=== PATIENT | female | born 1980 | race Caucasian/White ===

== ENCOUNTER 2023-06-28 10:05 | Outpatient (REF) | payer MEDICAID, SELFPAY ==
[2023-06-28 15:30] LABS: Alanine Aminotransferase 18 U/L (0-31); Albumin Level 3.6 g/dL (3.5-5.0); Alkaline Phosphatase 128 U/L (39-117); Aspartate Amino Transferase 18 U/L (5-31); Bilirubin Direct 0.2 mg/dL (0.0-0.5); Bilirubin Total 0.3 mg/dL (0.0-1.0); Total Protein 6.5 g/dL (6.5-8.0)
== END 2023-06-28 10:06 | disposition home or self-care (01) ==
LOC: HO.CHCLDS 10:05
PROVIDERS: Visit Provider Family Medicine
DX: F11.20 Opioid dependence, uncomplicated (principal)
CPT/HCPCS: 36415; 80076

== ENCOUNTER 2024-12-11 09:33 | Outpatient (REF) | payer MEDICAID, SELFPAY ==
--- OUTSIDE RECORDS SUMMARY | 2024-12-11 09:15 | XMS_ITS | Encounter Summary ---
Author Organization [employer] Address [address] [facility] 7t [place] [address] Care Team Providers Care Night Cleaner Name Role Phone Katharine Walker MD Primary Care Provider [phone] Reason for Visit * Reason Comments OBAT F/U Encounter Details Date Type Department Care Team (Latest Contact Info) Description 12/11/2024 9:15 AM EDT Office Visit [facility] CHC MED & PEDS [address] [place], [place] [phone] Charli Carbone MD [address] [place] [address] Opioid dependence, uncomplicated (CMS/HCC) (Primary Dx) Social History Tobacco Use Types Packs/Day Years Used Date Smoking Tobacco: Never Assessed Depression Answer Date Recorded Patient Health Questionnaire-9 Score 2 01/07/2024 Patient Health Questionnaire-9 Score 2 01/07/2024 Last PHQ-9: Questionnaire Data Not on file 1 Depression Answer Date Recorded Patient Health Questionnaire-2 Score 0 01/07/2024 Comments Unknown Sex and Gender Information Value Date Recorded Sex Assigned at Female 02/02/2022 10:20 AM EDT Legal Sex Female 10:20 AM EDT Gender Identity Female 02/02/2022 10:20 AM EDT Sexual Orientation Straight 02/02/2022 10 :20 AM EDT documented as of this encounter Progress Notes * Charli Carbone MD - 12/11/2024 9:15 AM EDT Patient presents for Opioid Dependence RV. Patient on Suboxone dose of 16/4 mg on an 8-week schedule. Patient reports taking medication as prescribed with no adverse effects. Induction: 12/2007. In MAT program 17 years 0 month. LFTs completed 06/28/2023 (due for repeat) Patient actively enrolled in behavioral health services, with integrated N clinician. PCP - Dr. Walker 01/07/24 [employer]OOTER'S HELPER Reviewed by MAT Provider LAST OBAT VISIT 09/18/2024 UTOX: POS BUP ONLY NEG FOR ALL OTHER SUBSTANCES Patient presents for OUD OBAT visit Discussed goal setting and envisioning her ongoing recovery in the future Has Narcan Suboxone dosing schedule of 16mg/4mg daily and management of side effects reviewed Recovery support, harm reduction (including Narcan), and behavioral health attendance reviewed Undergone emergency on 08/16/2023 due to failed induction ( decels) at 37 weeks GA Doing well now; back to her routine Patient expressed understanding and agreement with continuing plan of care Met with a RC today Follow up in 8 weeks TODAY OBAT VISIT 12/11/2024 UTOX NOT CHECKED TODAY (NO CONCERNS) Patient presents for OUD OBAT visit Discussed goal setting and envisioning her ongoing recovery in the future Has Narcan Suboxone dosing schedule of 16mg/4mg daily and management of side effects reviewed Recovery support, harm reduction (including Narcan), and behavioral health attendance reviewed Undergone emergency on 08/16/2023 due to failed induction ( decels) at 37 weeks GA Doing well now; back to her routine Patient expressed understanding and agreement with continuing plan of care Follow up in 8 weeks (will consider increasing to q12 weeks if stable at next visit) Review of Systems Psychiatric/Behavioral: Negative for behavioral problems and dysphoric mood. The patient is not nervous/anxious. Physical Exam Constitutional: Appearance: Normal appearance. Pulmonary: Effort: Pulmonary effort is normal. Neurological: Mental Status: She is alert. Psychiatric: Mood and Affect: Mood normal. Behavior: Behavior normal. Yandy was seen today for obat f/u. Diagnoses and all orders for this visit: Opioid dependence, uncomplicated (CMS/HCC) (Primary) - Hepatic Function Panel; Future Patient presents for a routine OUD OBAT visit Discussed treatment options for opioid dependence Patient is tolerating current treatment of Buprenorphine/Naloxone SL Discussed behavioral modification and accessing services Counseling provided with a focus on support system, tools for achieving/maintaining recovery Reviewed barriers for these goals Discussed strategies to address when faced situations that may trigger use Continue with current visit schedule Narcan use discussed [place] reviewed Encouraged to check LFT Reviewed risk assessment for family planning, STI and PrEP Follow up in 8 weeks (will consider increasing to q12 weeks if stable at next visit) This information has been disclosed to you from records protected by federal confidentiality rules (42 CFR Part 2). The federal rules prohibit you from making any further disclosure of information inthis record that identifies a patient as having or having had a substance use disorder either directly, by reference to publicly available information, or through verification of such identification by another person unless further disclosure is expressly permitted by the written consent of the individual whose information is being disclosed or as otherwise permitted by (see2.3.1). The federal rules restrict any use of the information to investigate or prosecute with regard to a crime any patient with a substance use disorder, except as provided at 2.12??(5) and 2.65. documented in this encounter Plan of Treatment Upcoming Encounters Date Type Department Care Team (Late st Contact Info) Description 02/05/2025 9:45 AM EST Office Visit [facility] MED & PEDS [address] [place] [address] Charli Carbone MD [address] [place] [phone] Scheduled Orders Name Type Priority Associated Diagnoses Orde r Schedule Hepatic Function Panel Lab Routine Opioid dependence, uncomplicated (CMS/HCC) Expected: 12/11/2024 (Approximate), Expires: 12/11/2025 documented as of this encounter Visit Diagnoses Diagnosis Opioid dependence, uncomplicated (CMS/HCC)- Primary documented in this encounter Additional Health Concerns Assessment Noted Time PHQ-9 Depression Total Score: 2 01/07/20 24 11:27 AM EDT documented as of this encounter Care Teams Night Cleaner Relationship Specialty Start Date End Date Katharine Walker MD [address] [place] [address] PCP - General Family Medicine 03/08/12 documented as of this encounter
--- OUTSIDE RECORDS SUMMARY | 2024-12-11 10:49 | XMS_ITS | Encounter Summary ---
Author Organization [employer] Address [address] [facility] [address] [place] [address] Care Team Providers Care Boat Carpenter Name Role Phone Katharine Walker MD Primary Care Provider [phone] Encounter Details Date Type Department Care Team (Latest Contact Info) Description 12/11/2024 Travel Social History Tobacco Use Types Packs/Day Years [...] AM EDT documented as of this encounter Plan of Treatment Upcoming Encounters Date Type Department Care Team (Late st Contact Info) Description 02/05/2025 9:45 AM EST Office Visit [facility] CHC MED & PEDS [address] [place] [address] Charli Carbone MD [address] [place] [address] documented as of this encounter Visit Diagnoses Not on filedocumented in this encounter Additional Health Concerns Assessment Noted Time PHQ-9 Depression Total Score: 2 01/07/20 24 11:27 AM EDT documented as of this encounter Care Teams Boat Carpenter Relationship Specialty Start Date End Date Katharine Walker MD [address] [place] [id number] PCP - General Family Medicine 03/08/12 documented as of this encounter
--- OUTSIDE RECORDS SUMMARY | 2024-12-11 10:49 | XMS_ITS | Encounter Summary ---
Author Organization [employer] Address [address] [place] [address] 7[address] [place] [address] Care Team Providers Care Evaluation Analyst Name Role Phone Katharine Walker MD Primary Care Provider [phone] Reason for Visit * Reason Onset Date Comments Med Refill 11/28/2024 Encounter Details Date Type Department Care Team (Late Contact Info) Description 11/28/2024 Refill [facility] MEDICINE [address] [place], [place] [phone] Yolanda Torres, STEFANIE Uncomplicated opioid dependence (CMS/[facility]) Social History Tobacco Use Types Packs/Day Years [...] Encounters Date Type Department Care Team (Late Contact Info) Description 02/05/2025 9:45 AM EST Office [facility] MED & PEDS [address] [place] [address] Charli Carbone MD [address] [place], [place] [phone] documented as of this encounter Visit Diagnoses Diagnosis Uncomplicated opioid dependence (CMS/HCC) documented in this encounter Additional Health Concerns Assessment Noted Time PHQ-9 Depression Total Score: 2 01/07/20 24 11:27 AM EDT documented as of this encounter Care Teams Evaluation Analyst Relationship Specialty Start Date End Date Katharine Walker MD [address] [place] [address] PCP - General Family Medicine 03/08/12 documented as of this encounter
--- OUTSIDE RECORDS SUMMARY | 2024-12-11 10:49 | XMS_ITS | Encounter Summary ---
Author Organization [employer] Address [address] [place] [address] 7 [place] [address] Care Team Providers Care Electronics Manufacturer Name Role Phone Katharine Walker MD Primary Care Provider [phone] Reason for Visit * Reason Onset Date Comments Med Refill 09/29/2024 Encounter Details Date Type Department Care Team (Late st Contact Info) Description 09/29/2024 Refill [facility] MED & PEDS [address] [place] [address] Katharine Walker MD [address] [place] [address] Social History Tobacco Use Types Packs/Day Years [...] Description 02/05/2025 9:45 AM EST Office Visit [facility] CHC MED & PEDS [address] [place], [place] [phone] Charli Carbone MD [address] [place] [address] documented as of this encounter Visit Diagnoses Not on filedocumented in this encounter Additional Health Concerns Assessment Noted Time PHQ-9 Depression Total Score: 2 01/07/20 24 11:27 AM EDT documented as of this encounter Care Teams Electronics Manufacturer Relationship Specialty Start Date End Date Katharine Walker MD [address] [place] [address] [place] [address] PCP - General Family Medicine 03/08/12 documented as of this encounter
--- OUTSIDE RECORDS SUMMARY | 2024-12-11 10:49 | XMS_ITS | Encounter Summary ---
Author Organization [employer] Address [address] [place] [address] 7 [place] [address] Care Team Providers Care Director Of Strategic Sales Name Role Phone Katharine Walker MD Primary Care Provider [phone] Reason for Visit * Reason Comments Med Refill Encounter Details Date Type Department Care Team (Late st Contact Info) Description 09/10/2023 Refill [facility] MED & PEDS [address] [place] [address] Katharine Walker MD [address] [place] [address] Depression, unspecified depression type Social History Tobacco Use Types Packs/Day Years Used Date Smoking Tobacco: Never Assessed Comments Unknown Sex and Gender Information Value [...] Description 02/05/2025 9:45 AM EST Office Visit [facility] CHC MED & PEDS [address] [place], [place] [phone] Charli Carbone MD [address] [place] [address] documented as of this encounter Visit Diagnoses Diagnosis Depression, unspecified depression type documented in this encounter Care Teams Director Of Strategic Sales Relationship Specialty Start Date End Date Katharine Walker MD [address] [place] [address] PCP - General Family Medicine 03/08/12 documented as of this encounter
--- OUTSIDE RECORDS SUMMARY | 2024-12-11 10:49 | XMS_ITS | Encounter Summary ---
Author Organization [employer] Address [address] [place] [address] 7 [place] [address] Care Team Providers Care Bobj Developer Name Role Phone Katharine Walker MD Primary Care Provider [phone] Encounter Details Date Type Department Care Team (Late st Contact Info) Description 07/13/2024 Orders Only [facility] MED & PEDS [address] [place], [place] [phone] ProviderGretchen MD Social History Tobacco Use Types Packs/Day Years [...] Description 02/05/2025 9:45 AM EST Office Visit [facility] MED & PEDS [address] [place], [place] [phone] Charli Carbone MD [address] [place] [address] documented as of this encounter Procedures Procedure Name Priority Date/Time Associated Diagnosis Comments HM PAP/HPV Routine 08/20/2021 11:20 AM EDT documented in this encounter Results * HM PAP/HPV (08/20/2021 11:20 AM EDT) us Historical Provider HEALTH MAINTENANCE Final Result documented in this encounter Visit Diagnoses Not on filedocumented in this encounter Additional Health Concerns Assessment Noted Time PHQ-9 Depression Total Score: 2 01/07/20 24 11:27 AM EDT documented as of this encounter Care Teams Bobj Developer Relationship Specialty Start Date End Date Katharine Walker MD [address] [place] [address] PCP - General Family Medicine 03/08/12 documented as of this encounter
--- OUTSIDE RECORDS SUMMARY | 2024-12-11 10:49 | XMS_ITS | Encounter Summary ---
Author Organization [employer] Address [address] [facility] 7t [place] [address] Care Team Providers Care Wedding Cake Designer Name Role Phone Katharine Walker MD Primary Care Provider [phone] Reason for Visit * Reason Onset Date Comments Med Refill 09/29/2024 Encounter Details Date Type Department Care Team ([facility] Contact Info) Description 09/29/2024 Telephone [facility] MEDICINE [address] [place] [address] Katharine Walker MD [address] [place] [address] Med Refill Social History Tobacco Use Types Packs/Day Years [...] AM EDT documented as of this encounter Miscellaneous Notes * Telephone Encounter - Zee Cardenas LPN - 09/29/2024 11:17 AM EDT Medication was sent to [facility] #[id number] on 09/26/24 #30 with 2 refills. * Telephone Encounter - Brenda Correa - 09/29/2024 11:12 AM EDT TC from pt requesting medication refill. Medications needing refill : sertraline (Zoloft) 50 MG tablet To be sent to: [facility]/pharmacy #[id number] documented in this encounter Plan of Treatment Upcoming Encounters Date Type Department Care Team (Late st Contact Info) Description 02/05/2025 9:45 AM EST Office Visit [facility] CHC MED & PEDS [address] [place] [address] Charli Carbone MD [address] [place] [address] documented as of this encounter Visit Diagnoses Not on filedocumented in this encounter Additional Health Concerns Assessment Noted Time PHQ-9 Depression Total Score: 2 01/07/20 24 11:27 AM EDT documented as of this encounter Care Teams Wedding Cake Designer Relationship Specialty Start Date End Date Katharine Walker MD [address] [place] [address] PCP - General Family Medicine 03/08/12 documented as of this encounter
--- OUTSIDE RECORDS SUMMARY | 2024-12-11 10:49 | XMS_ITS | Clinical Summary ---
Author Organization [employer] Address [address] [facility] 7t [place] [address] Care Team Providers Care Aviation Manager Name Role Phone Katharine Walker MD Primary Care Provider [phone] Allergies No known active allergies Medications naloxone (Narcan) 4 mg/0.1 mL nasal spray Administer 0.1 mL into affected nostril(s). 01/04/20 20 Active omeprazole OTC (PriLOSEC OTC) 20 MG EC tablet Take 1 tablet by mouth 1 (one) time each day. 06/07/19 22 Active polyethylene glycol, PEG, 3350 (MiraLax) 17 GM/SCOOP powder take (17G) by oral route every day mixed with 8 oz. water, juice, soda, coffee or tea 06/21/19 22 Active sennosides (Senokot) 8.6 MG tablet Take 1 tablet on day 1, take a second tablet in 24 hours if no response. Can take 2 tabs daily for slow-transit constipation 05/02/19 22 Active Blood Pressure kit Active hydrOXYzine pamoate (Vistaril) 25 MG capsule Take 1 capsule (25 mg) by mouth every 12 (twelve) hours if needed for anxiety for up to 10 days. 20 capsule 06/21/19 25 Active sertraline (Zoloft) 50 MG tablet Take 1 tablet (50 mg) by mouth Once per day. 30 tablet 2 09/27/19 25 Active Buprenorphine HCl-Naloxone HCl (Suboxone) 8-2 MG SL filmIndicatio ns:Uncomplica yvonne opioid dependence (CMS/HCC) Place 1 Film under the tongue every 12 (twelve) hours. Do not start before December 11, 2024. 56 Film 1 12/12/19 25 025 Active Buprenorphine HCl-Naloxone HCl (Suboxone) 8-2 MG SL filmIndicatio ns:Uncomplica yvonne opioid dependence (CMS/HCC) Place 1 Film under the tongue every 12 (twelve) hours for 28 days. Do not start before November 13, 2024. 56 Film 11/14/19 25 025 Discontinued(R eorder (will not trigger notification to Pharmacy)) Active Problems Problem Noted Date Diagnosed Date Anxiety 07/04/2024 Opioid type dependence, continuous 06/06/2013 Seasonal allergic rhinitis 06/06/2013 Tobacco dependence syndrome 06/06/2013 Encounters Date Type Department Care Team Description 12/11/2024 9:15 AM EDT Office Visit [facility] MED & PEDS [address] [place] [address] Charli Carbone MD Opioid dependence, uncomplicated (CMS/HCC) (Primary Dx) 12/11/2024 Travel 12/10/2024 Travel 11/28/2024 Refill [facility] [address] [place] [address] Yolanda Torres RN Uncomplicated opioid dependence (CMS/HCC) 10/25/2024 Refill [facility] [address] [place] [address] Yolanda Torres, RN Uncomplicated opioid dependence (CMS/HCC) 09/29/2024 Telephone [facility] MED & PEDS [address] [place] [address] Katharine Walker MD Prior Authorization 09/29/2024 Refill [facility] MED & PEDS [address] [place] [address] Katharine Walker MD 09/29/2024 Telephone [facility] [address] [place] [address] Katharine Walker MD Med Refill 09/26/2024 11:15 AM EDT Telemedicine [facility] MED & PEDS [address] [place] [address] Katharine Walker MD Anxiety (Primary Dx); Encounter for screening mammogram for breast cancer 09/26/2024 Travel 09/25/2024 Travel 09/18/2024 9:30 AM EDT Office Visit [facility] MED & PEDS [address] [place] [address] Charli Carbone MD Opioid dependence, uncomplicated (CMS/HCC) (Primary Dx) 09/18/2024 Travel 09/12/2024 Refill [facility] [address] [place] [address] Yolanda Torres, STEFANIE Uncomplicated opioid dependence (CMS/HCC) 09/11/2024 Refill [facility] [address] [place] [address] Yolanda Torres, STEFANIE from Last 3 Months Immunizations Immunization Administration Dates Next Due Hep B, adult 05/05/2011,11/18/2010,09/23/2010 Influenza injectable quadriv alent IIV4 with preservative 02/07/2015 Influenza injectable quadriv alent preservative free 01/14/2022,03/14/2018,01/22/2017 Influenza, live, intranasal 12/15/2011 TD (adult), 2 Lf tetanus tox oid, preservative free, adsorbed 12/21/2007 Tdap 05/13/2018 Social History Tobacco Use Types Packs/Day Years [...] Orientation Straight 02/02/2022 10 :20 AM EDT Last Filed Vital Signs Vital Sign Reading Time Taken Comments Blood Pressure 133/66 01/07/2024 11:04 AM EDT Pulse 99 01/07/2024 11:04 AM EDT Temperature 37 C (98.6 F) 01/07/2024 11:04 AM EDT Respiratory Rate 20 01/07/2024 11:04 AM EDT Oxygen Saturation 99% 01/07/2024 11:04 AM EDT Inhaled Oxygen Concentration - - Weight 49.9 kg (110 lb) 01/07/2024 11:04 AM EDT Height 151 cm (4' 11.45 ) 01/07/2024 11:04 AM ED T Body Mass Index 21.88 01/07/2024 11:04 AM EDT Plan of Treatment Upcoming Encounters Date Type Department Care Team (Late st Contact Info) Description 02/05/2025 9:45 AM EST Office Visit [facility] MED & PEDS [address] [place] [address] Charli Carbone MD [address] [place] [address] Health Maintenance Due Date Last Done Comments HIV Screening 1982 SDOH Screening 1982 Alcohol/Substance Use Screening 1994 Tobacco Screening 1994 Family Planning (PISQ) 1997 HPV Vaccines (1 - 3-dose series) 1997 Hepatitis C Screening 2000 Mammogram 2022 COVID-19 Vaccine ( - season) 2024 Influenza Vaccine (#1) 2024 , 03/14/2018, 01/22/2017, Additional history exists Depression Screening 01/06/2025 01/07/2024, 01/07/20 24 Disability Screening 07/10/2025 07/10/2024 Lipid Panel 05/08/2026 05/08/2021 Cervical Cancer Screening 08/20/2026 HPV/Cotest 08/20/2026 Pap Smear 08/20/2026 08/20/2021 DTaP/Tdap/Td Vaccines (2 - Td or Tdap) 05/13/2028 05/13/2018, 12/21/2007 Zoster Vaccines (1 of 2) 2032 RSV Patients and Patients Aged 60 years or older (1 - 1-dose 75+ series) 2057 Hepatitis B Vaccines Completed 05/05/2011, 11/18/2010, 09/23/2010 HIB Vaccines Aged Out No longer eligi ble based on patient's age to complete this topic Hepatitis A Vaccines Aged Out No long er eligible based on patient's age to complete this topic IPV Vaccines Aged Out No longer eligi ble based on patient's age to complete this topic Meningococcal B Vaccine Aged Out No l onger eligible based on patient's age to complete this topic Meningococcal Vaccine Aged Out No kang jay jay eligible based on patient's age to complete this topic Pneumococcal Vaccine: Pediatrics (0 to 5 Years) and At-Risk Patients (6 to 49) Years Aged Out No longer eligible based on patient's age to complete this topic RSV under 20 months Aged Out No longe r eligible based on patient's age to complete this topic Rotavirus Vaccines Aged Out No longer eligible based on patient's age to complete this topic Procedures Procedure Name Priority Date/Time Associated Diagnosis Comments POCT MURTAZA-14 URINE DRUG SCREEN Routine 09/18/2024 9:54 AM EDT Opioid dependence, uncomplicated (CMS/HCC) PAP/HPV Routine 08/20/2021 11:20 AM EDT LIPID PANEL, STANDARD Routine 05/08/2021 9:04 AM EST from Last 3 Months or Most Recently Relevant to Health Maintenance Results * POCT MURTAZA-14 Urine Drug Screen (09/18/2024 9:54 AM EDT) THC Negative Cocaine Screen, Urine Negative Opiate Screen, Urine Negative Methamphetamine Screen Urine Negative Amphetamine Screen, Urine Negative Benzodiazepines Screen, Urine Negative Barbiturate Screen, Urine Negative Methadone Screen, Urine Negative Buprenophine Screen, Urine Positive TCA, Urine Negative MDMA Urine Negative ng/mL Oxycodone Screen, Urine Negative Phencyclidine (PCP), Urine Negative Fentanyl, Urine Negative Urine Urine specimen obtained by clean catch procedure / Unknown 09/18/2024 9:54 AM EDT us Charli Carbone MD POINT OF CARE TEST ENTER/EDIT OR DERABLES Final Result * PAP/HPV (08/20/2021 11:20 AM EDT) Gretchen Hayden MD HEALTH MAINTENANCE Final Result * LIPID PANEL, STANDARD (05/08/2021 9:04 AM EST) Chol/HDLC Ratio 2.4 <5.0 (calc) [facility] Cholesterol, Total 167 <200 mg/dL [facility] HDL Cholesterol 71 > OR = 50 mg/dL [facility] LDL Cholesterol 83 mg/dL (calc) [facility] Comment: Reference range: <100 Desirable range <100 mg/dL for primary prevention; <70 mg/dL for patients with CHD or diabetic patients with > or = 2 CHD risk factors. LDL-C is now calculated using the Saba calculation, which is a validated novel method providing better accuracy than the Friedewald equation in the estimation of LDL-C. Soto SS et al. ANDRZEJ. 2013;310(19): 6074-0675 (http://education.Contix/faq/XJR084) Non-HDL Cholesterol 96 <130 mg/dL (calc) [facility] Comment: For patients with diabetes plus 1 major ASCVD risk factor, treating to a non-HDL-C goal of <100 mg/dL (LDL-C of <70 mg/dL) is considered a therapeutic option. Triglycerides 47 <150 mg/dL [facility] 05/08/2021 9:04 AM EST us Tari Bose [facility] BLOOD ORDERABLES Final Res ult [facility] [address] from Last 3 Months or Most Recently Relevant to Health Maintenance Insurance [facility] C3 Care Teams Aviation Manager Relationship Specialty Start Date End Date Katharine Walker MD [address] [place] [id number] PCP - General Family Medicine 03/08/12
--- OUTSIDE RECORDS SUMMARY | 2024-12-11 10:49 | XMS_ITS | Encounter Summary ---
Author Organization [employer] Address [address] [place] [address] [address] [place] [address] Care Team Providers Care Vba Developer Name Role Phone Katharine Walker MD Primary Care Provider [phone] Reason for Visit * Reason Onset Date Comments Med Refill 04/09/2023 Encounter Details Date Type Department Care Team (Late st Contact Info) Description 04/09/2023 Refill [facility] MED & PEDS [address] [place] [address] Katharine Walker MD [address] [place] [address] Depression, unspecified depression type Social History Tobacco [...] Description 02/05/2025 9:45 AM EST Office Visit [facility] MED & PEDS [address] [place], [place] [phone] Charli Carbone MD [address] [place] [phone] documented as of this encounter Visit Diagnoses Diagnosis Depression, unspecified depression type documented in this encounter Care Teams Vba Developer Relationship Specialty Start Date End Date Katharine Walker MD [address] [place] [phone] PCP - General Family Medicine 03/08/12 documented as of this encounter
--- OUTSIDE RECORDS SUMMARY | 2024-12-11 10:49 | XMS_ITS | Encounter Summary ---
Author Organization [employer] Address [address] [place] [address] 7 [place] [address] Care Team Providers Care Water Main Installer Helper Name Role Phone Katharine Walker MD Primary Care Provider [phone] Reason for Visit * Reason Onset Date Comments Med Refill 09/11/2024 Encounter Details Date Type Department Care Team (Late Contact Info) Description 09/11/2024 Refill [facility] MEDICINE [address] [place], [place] [phone] Yolanda Torres, STEFANIE Social History Tobacco Use Types Packs/Day Years [...] Description 02/05/2025 9:45 AM EST Office Visit [facility] CH[facility] MED & PEDS [address] [place] [address] Charli Carbone MD [address] [place], [place] [phone] documented as of this encounter Visit Diagnoses Not on filedocumented in this encounter Additional Health Concerns Assessment Noted Time PHQ-9 Depression Total Score: 2 01/07/20 24 11:27 AM EDT documented as of this encounter Care Teams Water Main Installer Helper Relationship Specialty Start Date End Date Katharine Walker MD [address] [place] [phone] PCP - General Family Medicine 03/08/12 documented as of this encounter
--- OUTSIDE RECORDS SUMMARY | 2024-12-11 10:49 | XMS_ITS | Encounter Summary ---
Author Organization [employer] Address [address] [place] [address] 7 [place] [address] Care Team Providers Care Electrician Chief Name Role Phone Katharine Walker MD Primary Care Provider [phone] Reason for Visit * Reason Comments Med Refill Encounter Details Date Type Department Care Team (Late st Contact Info) Description 04/09/2023 Refill [facility] MED & PEDS [address] [place] [address] Katharine Walker MD [address] [place] [address] Depression, unspecified depression type Social History Tobacco [...] Description 02/05/2025 9:45 AM EST Office Visit [facility] MED & PEDS [address] [place], [place] [phone] Charli Carbone MD [address] [place] [address] documented as of this encounter Visit Diagnoses Diagnosis Depression, unspecified depression type documented in this encounter Care Teams Electrician Chief Relationship Specialty Start Date End Date Katharine Walker MD [address] [place] [address] PCP - General Family Medicine 03/08/12 documented as of this encounter
--- OUTSIDE RECORDS SUMMARY | 2024-12-11 10:49 | XMS_ITS | Encounter Summary ---
Author Organization [employer] Address [address] [facility] [address] [place] [address] Care Team Providers Care Motor Pool Driver Name Role Phone Katharine Walker MD Primary Care Provider [phone] Encounter Details Date Type Department Care Team (Latest Contact Info) Description 12/10/2024 Travel Social History Tobacco Use Types Packs/Day [...] Description 02/05/2025 9:45 AM EST Office Visit [facility] MED & PEDS [address] [place] [address] Charli Carbone MD [address] [place] [phone] documented as of this encounter Visit Diagnoses Not on filedocumented in this encounter Additional Health Concerns Assessment Noted Time PHQ-9 Depression Total Score: 2 01/07/20 24 11:27 AM EDT documented as of this encounter Care Teams Motor Pool Driver Relationship Specialty Start Date End Date Katharine Walker MD [address] [place] [phone] PCP - General Family Medicine 03/08/12 documented as of this encounter
--- OUTSIDE RECORDS SUMMARY | 2024-12-11 10:49 | XMS_ITS | Encounter Summary ---
Author Organization [employer] Address [address] [place] [address] [address] [place] [address] Care Team Providers Care Employee Benefits Administrator Name Role Phone Katharine Walker MD Primary Care Provider [phone] Reason for Visit * Reason Comments Med Refill Encounter Details Date Type Department Care Team ([facility] Contact Info) Description 02/08/2023 Refill [facility] MEDICINE [address] [place], [place] [phone] Charli Carbone MD [address] [place] [phone] Uncomplicated opioid dependence (CMS/HCC) Social History Tobacco Use Types Packs/Day Years [...] Upcoming Encounters Date Type Department Care Team ([facility] Contact Info) Description 02/05/2025 9:45 AM EST Office Visit [facility] CHC MED & PEDS [address] [place], [place] [phone] Charli Carbone MD [address] [place] [phone] documented as of this encounter Visit Diagnoses Diagnosis Uncomplicated opioid dependence (CMS/HCC) documented in this encounter Care Teams Employee Benefits Administrator Relationship Specialty Start Date End Date Katharine Walker MD [address] [place] [phone] PCP - General Family Medicine 03/08/12 documented as of this encounter
[2024-12-11 15:33] LABS: Alanine Aminotransferase 11 U/L (0-31); Albumin Level 4.8 g/dL (3.5-5.0); Alkaline Phosphatase 76 U/L (39-117); Aspartate Amino Transferase 24 U/L (5-31); Total Protein 7.3 g/dL (6.5-8.0)
== END 2024-12-11 09:34 | disposition home or self-care (01) ==
LOC: HO.CHCLDS 09:33
PROVIDERS: Visit Provider Family Medicine
DX: F11.20 Opioid dependence, uncomplicated (principal)
CPT/HCPCS: 36415; 80076

== ENCOUNTER 2025-01-31 12:01 | Outpatient (REF) | payer MEDICAID, SELFPAY ==
[2025-01-31 14:06] LABS: MANUAL DIFF FLAG NO
[2025-01-31 14:10] LABS: Hematocrit 38.1 % (37.0-47.0); Hemoglobin 12.2 g/dl (12.0-16.0); Imm Gran Abs Auto 0.01 X10*3/uL (0.00-0.03); Imm Gran Pct Auto 0.3 % (0.0-0.4); Lymphocytes Absolute Auto 0.8 X10*3/uL (1.2-4.9); Mean Corpuscular HGB Conc 32.0 g/dl (31.0-35.0); Mean Corpuscular Hemoglobin 29.3 pg (27.0-33.0); Mean Corpuscular Volume 91.4 fL (80.0-98.0); NRBC Abs Auto 0.000 X10*3/uL (0.0-0.012); NRBC Pct Auto 0.0 /100WBC (0.0-0.2); Platelet Count 229 X10*3/uL (160-400); Red Blood Count 4.17 X10*6/uL (4.20-5.50); White Blood Count 3.6 X10*3/uL (4.8-10.8)
[2025-01-31 14:25] LABS: Alanine Aminotransferase 15 U/L (0-31); Albumin Level 4.8 g/dL (3.5-5.0); Alkaline Phosphatase 79 U/L (39-117); Anion Gap 9 (12-20); Aspartate Amino Transferase 24 U/L (5-31); Blood Urea Nitrogen 12 mg/dL (9-16); Calcium 8.8 mg/dL (8.4-10.2); Carbon Dioxide 31 mmol/L (22-29); Chloride 102 mmol/L (96-108); Estimated Glomerular Filt Rate > 60; Potassium 3.9 mmol/L (3.3-5.1); Sodium 138 mmol/L (135-145); Total Protein 7.3 g/dL (6.5-8.0)
[2025-02-02 23:28] LABS: Immunoglobulin A 191 mg/dL (47-310)
== END 2025-01-31 12:02 | disposition home or self-care (01) ==
LOC: HO.CHCLDS 12:01
DX: K58.2 Mixed irritable bowel syndrome (principal)
CPT/HCPCS: 36415; 80053; 82784; 85025; 86364